=== PATIENT | female | born 1965 | race Caucasian/White ===

== ENCOUNTER → 2018-06-07 | Outpatient (CLI) | payer BC ==
[~2018-06-07] MED LIST: ALBU90OI61 INH; CYCL10 PO; ESCI10 PO; ESTRTP VAG; INSULANPEN; Maxalt10 MG; PANT40 PO; RXPROACE; TRAM50 PO; VENL75
== END | disposition home or self-care (01) ==
LOC: LAB 11:49 → LAB SHORT 11:49
DX: N89.8 Other specified noninflammatory disorders of vagina (principal)
CPT/HCPCS: 87070; 87077; 87147; 87186; 87205

== ENCOUNTER → 2023-04-30 | Outpatient (CLI) | payer BC ==
[~2023-04-30] MED LIST changes: +ESCI10; +LAMO100; +MAGCHL64ER; +METO25ER; +PIOG15
== END ==
LOC: LAB 10:07 → LAB SHORT 10:07
DX: N39.0 Urinary tract infection, site not specified (principal)
CPT/HCPCS: 87077; 87086; 87186

== ENCOUNTER 2023-05-11 06:18 | Day surgery (SDC) | payer BC ==
[2023-05-11] VITALS (16 sets, daily range): BP systolic 117–145; BP diastolic 71–85
[~2023-05-11] VITALS: Ht 162.6 cm; Wt 76.1 kg
[~2023-05-11 06:18] MED LIST changes: -ESCI10; +Estrace Vagin42.5 GM; +HUMALOG100 UNIT/1; -LAMO100; +LAMO100 PO
[2023-05-11] MEDS ORDERED: PROG100 PO (07:24)
[2023-05-11] MEDS ORDERED: OZEMPIC1 MG/0.72 SC (07:24)
--- NOTE | 2023-05-11 07:41 | NUR ---
Ambulatory in Day Surgery History, Chart, Medications and Allergies reviewed before start of procedure.Patient confirms NPO status and agrees with scheduled surgery. Patient reports completing Chlorhexadine shower X2 prior to admission to hospital.Lungs clear T/O to Auscultation. Surgical site prepped with 2% Chlorhexidine cloth wipe.
--- NOTE | 2023-05-11 07:46 | NUR ---
REPORT GIVEN TO MARIE SNIDER
[2023-05-11 13:12] LABS: BASOPHILS ABSOLUTE AUTO 0.04 K/mm3 (0.00-0.23); BASOPHILS PERCENT AUTO 0 % (0-2); EOSINOPHILS ABSOLUTE AUTO 0.01 K/mm3 (0.00-0.68); EOSINOPHILS PERCENT AUTO 0 % (0-6); Hematocrit 40.3 % (33.0-51.0); Hemoglobin 13.7 g/dL (11.5-16.0); IMMATURE GRAN ABSOLUTE AUTO 0.04 K/mm3 (0.00-0.10); IMMATURE GRAN PERCENT AUTO 0 % (0-1); LYMPHOCYTES ABSOLUTE AUTO 0.95 K/mm3 (0.84-5.20); LYMPHOCYTES PERCENT AUTO 9 % (21-46); MONOCYTES ABSOLUTE AUTO 0.21 K/mm3 (0.16-1.47); MONOCYTES PERCENT AUTO 2 % (4-13); Mean Corpuscular HGB 29.1 pg (26.0-34.0); Mean Corpuscular Volume 86 fL (80-100); Mean Platelet Volume 9.3 fL (9.1-12.4); NEUTROPHILS ABSOLUTE AUTO 9.13 K/mm3 (1.96-9.15); NEUTROPHILS PERCENT AUTO 88 % (41-73); Platelet Count 256 K/mm3 (150-400); RDW Coefficient Variation 12.8 % (11.7-14.2); White Blood Cell Count 10.38 K/mm3 (4.00-11.30)
--- NOTE | 2023-05-11 15:10 | NUR ---
REPORT GIVEN TO TANVI SNIDER, PATIENT IBARRA DC'D, EDUCATION GIVEN ON AMBULATING AND THE NEED TO VOID, TOLERATE PO AND PAIN MEDICATION. VSS. PATIENT AOX4, AND CALL LIGHT IN REACH.
[2023-05-11] MEDS ORDERED: Percocet 5-3251 EACH PO (17:01)
[2023-05-11] MEDS ORDERED: ELIQUIS5 M2 PO (17:03)
--- NOTE | 2023-05-11 17:44 | NUR ---
SHIFT SUMMARY PT A&OX4, VSS/RA, DIDIER PO, VOIDING, AMB INDEPENDENTLY/DRESSED SELF, PAIN MANAGED, IV DC'D. S/P LAP HYSTER, LAP SITES CDI, ABD BINDER, LOVENOX SHOT GIVEN. DC INS PROVIDED. PT REP UNDERSTANDING THOSE INSTRUCTIONS INCLUDING FU WITH DR MONTEJO, NOTHING PER VAGINA, NO LIFTING; PT REP HAS SCRIPTS FILLED FOR PERCOCET AND ELIQUIS. LEFT FLOOR WITH [employer] MATCHER TO GO HOME WITH , WITH ALL PERSONAL ITEMS INCLUDING DC PACKET.
== END 2023-05-11 17:12 | disposition home or self-care (01) ==
LOC: ORSCMMR 06:18 → ORD 08:00 → SURS 11:12 → ORSCMMR 17:12
PROVIDERS: Obstetrics & Gynecology
PROC: 0UT9FZZ Resection of Uterus, Via Natural or Artificial Opening With Percutaneous Endoscopic Assistance (ICD-10-PCS; principal; 2023-05-11 08:00)
DX: N95.0 Postmenopausal bleeding (principal); R93.89 Abnormal findings on diagnostic imaging of other specified body structures; N80.03 Adenomyosis of the uterus; D25.0 Submucous leiomyoma of uterus; N73.6 Female pelvic peritoneal adhesions (postinfective); E11.9 Type 2 diabetes mellitus without complications; F31.9 Bipolar disorder, unspecified; Z79.899 Other long term (current) drug therapy
CPT/HCPCS: 36415; 82947; 85025; 88307; A9270; J0690; J1100; J1650; J1885; J2250; J2405; J2704; J3010; J7120